=== PATIENT | female | born 1975 | race Two or more races ===

== ENCOUNTER 2023-10-29 14:12 | Emergency (ER) | payer OTHER ==
[~2023-10-29] VITALS: Ht 154.9 cm; Wt 77.1 kg
[2023-10-29 16:56] VITALS: BP 128/83; TEMP 98.2; O2SAT 97
== END 2023-10-29 16:57 | disposition home or self-care (01) ==
LOC: ER 14:12
DX: S13.4XXA Sprain of ligaments of cervical spine, initial encounter (principal); V49.3XXA Car occupant (driver) (passenger) injured in unspecified nontraffic accident, initial encounter; Y93.89 Activity, other specified; Y92.89 Other specified places as the place of occurrence of the external cause; Y99.8 Other external cause status
CPT/HCPCS: 70450-TC; 72125-TC; 73030-TC; 73502